=== PATIENT | female | born 1945 | race African-American/Black ===

== ENCOUNTER 2016-11-09 15:36 | Inpatient (IN) | payer OTHER ==
[~2016-11-09] VITALS: Ht 160 cm; Wt 87.7 kg
[2016-11-09] MEDS ORDERED: OMEGA-3 FISH O1 EAC3 PO (18:20)
[2016-11-09] MEDS ORDERED: ASCORBIC ACID500 M3 PO (18:20)
[2016-11-09] MEDS ORDERED: ONE-A-DAY ESSE1 EAC1 PO (18:20)
[2016-11-09] MEDS ORDERED: VITAMIN D31000 UNIT PO (18:20)
[2016-11-09 18:48] LABS: HEMATOCRIT 40.8 % (36.0-46.0); MCH 30.3 PG (29.0-34.0); MCHC 31.9 G/DL (30.0-36.0); MCV 95.1 FL (83-99); PLATELET COUNT 242 K/uL (156-360); RBC DIS.WIDTH-CV 12.9 % (11.8-14.6); RBC DIS.WIDTH-SD 44.9 % (39-53); RED BLOOD COUNT 4.29 M/uL (3.80-5.20); WHITE BLOOD COUNT 9.3 K/uL (4.1-10.2)
[2016-11-09 18:59] LABS: CHLORIDE 103 mEq/L (99-109); POTASSIUM 3.7 mEq/L (3.7-5.4); SODIUM 141 mEq/L (136-147)
[2016-11-09 19:01] LABS: GLUCOSE 118 mg/dL (70-99)
[2016-11-09 19:02] LABS: PTT 26.4 (25-32)
[2016-11-09 19:03] LABS: ANION GAP 11 MEQ/L (2-14)
[2016-11-09 19:05] LABS: GFR ESTIMATE (CALCULATED) > 59 mL/min/
[2016-11-09 19:06] LABS: UREA NITROGEN (BUN) 11 mg/dL (9-23)
[2016-11-09 21:49] VITALS: BP 140/88
[2016-11-09 23:22] VITALS: BP 150/71
[2016-11-10 04:14] VITALS: BP 157/74
[2016-11-10 07:42] VITALS: BP 139/88
[2016-11-10 11:30] VITALS: BP 148/83
[2016-11-10 15:37] VITALS: BP 142/80
[2016-11-10 20:00] VITALS: BP 170/76
[2016-11-10 23:46] VITALS: BP 128/60
[2016-11-11 03:46] VITALS: BP 157/68
[2016-11-11 07:35] VITALS: BP 142/83
[2016-11-11 08:34] LABS: EOSINOPHIL (%) 0.1 % (0-5); HEMATOCRIT 36.1 % (36.0-46.0); IMMATURE GRANULOCYTE (%) 0.6 % (0.0-0.7); IMMATURE GRANULOCYTE COUNT 0.1 K/uL; INSTRUMENT ABS NEUTROPHIL CT 8.6 K/uL; LYMPHOCYTE COUNT 0.9 K/uL (1.0-2.8); MCH 30.3 PG (29.0-34.0); MCHC 31.9 G/DL (30.0-36.0); MCV 95.3 FL (83-99); MEAN PLAT.VOLUME 10.3 uM^3 (9.5-12.4); MONOCYTE (%) 6.5 % (3-12); MONOCYTE COUNT 0.7 K/uL (0-0.8); NEUTROPHIL COUNT 8.6 K/uL (1.8-6.4); PLATELET COUNT 206 K/uL (156-360); RBC DIS.WIDTH-CV 12.6 % (11.8-14.6); RBC DIS.WIDTH-SD 44.3 % (39-53); RED BLOOD COUNT 3.79 M/uL (3.80-5.20); WHITE BLOOD COUNT 10.3 K/uL (4.1-10.2)
[2016-11-11 09:00] LABS: ANION GAP 9 MEQ/L (2-14); CHLORIDE 104 MEQ/L (99-109); GFR ESTIMATE (CALCULATED) > 59 mL/min/; GLUCOSE 114 mg/dL (70-99); POTASSIUM 3.8 MEQ/L (3.7-5.4); SAMPLE HEMOLYSIS CHECK 0; SAMPLE ICTERIC CHECK 0; SAMPLE LIPEMIA CHECK 0; SODIUM 141 MEQ/L (136-147); UREA NITROGEN (BUN) 6 mg/dL (9-23)
[2016-11-11 11:46] VITALS: BP 149/79
[2016-11-11 16:45] VITALS: BP 190/98
[2016-11-11 23:27] VITALS: BP 141/85
[2016-11-12 03:37] VITALS: BP 164/71
[2016-11-12 07:26] VITALS: BP 152/88
[2016-11-12] MEDS ORDERED: HYDROCODON-ACE1 EAC7 PO (12:30)
[2016-11-12] MEDS ORDERED: SENNA LAX8.6 MG PO (12:30)
[2016-11-12] MEDS ORDERED: LOVENOX40 MG/0.4 SC (12:30)
[2016-11-12] MEDS ORDERED: ALUM-MAG HYDRO360 ML PO (14:47)
[2016-11-12] MEDS ORDERED: ZOFRAN4 MG PO (14:48)
[2016-11-12] MEDS ORDERED: TYLENOL REGULA325 MG PO (14:49)
== END 2016-11-12 14:25 | DRG 494 ==
LOC: EME 15:36 → EDOF 18:24 → 3EAST 18:24
PROVIDERS: Emergency Medicine; Orthopaedic Surgery
PROC: 0QSG06Z Reposition Right Tibia with Intramedullary Internal Fixation Device, Open Approach (ICD-10-PCS; principal; 2016-11-10)
DX: S82.241A Displaced spiral fracture of shaft of right tibia, initial encounter for closed fracture (principal); S82.431A Displaced oblique fracture of shaft of right fibula, initial encounter for closed fracture; W01.0XXA Fall on same level from slipping, tripping and stumbling without subsequent striking against object, initial encounter; Z87.891 Personal history of nicotine dependence
CPT/HCPCS: 71010; 73552; 73560; 73590; 73600; 73700; 76000; 80048; 85025; 85027; 85610; 85730; 86900; 86901; 99281; 99285; C1713; J0690; J1170; J1650; J2175; J2250; J2270; J2405; J3010; J7050

== ENCOUNTER 2016-11-12 14:33 | Inpatient (IN) | payer OTHER ==
[~2016-11-12] VITALS: Ht 160 cm; Wt 91.6 kg
[~2016-11-12 14:33] MED LIST: ASCORBIC ACID500 M3 PO; HYDROCODON-ACE1 EAC7 PO; LOVENOX40 MG/0.4 SC; OMEGA-3 FISH O1 EAC3 PO; ONE-A-DAY ESSE1 EAC1 PO; SENNA LAX8.6 MG PO; VITAMIN D31000 UNIT PO
[2016-11-12] MEDS ORDERED: ALUM-MAG HYDRO360 ML PO (14:47)
[2016-11-12] MEDS ORDERED: ZOFRAN4 MG PO (14:48)
[2016-11-12] MEDS ORDERED: TYLENOL REGULA325 MG PO (14:49)
[2016-11-12 15:13] VITALS: BP 164/84
[2016-11-13 00:16] VITALS: BP 140/76
[2016-11-13 05:05] VITALS: BP 145/77
[2016-11-13 06:51] LABS: HEMATOCRIT 29.7 % (36.0-46.0); MCH 31.1 PG (29.0-34.0); MCHC 33.3 G/DL (30.0-36.0); MCV 93.4 FL (83-99); MEAN PLAT.VOLUME 10.6 uM^3 (9.5-12.4); PLATELET COUNT 195 K/uL (156-360); RBC DIS.WIDTH-CV 12.7 % (11.8-14.6); RBC DIS.WIDTH-SD 43.3 % (39-53); RED BLOOD COUNT 3.18 M/uL (3.80-5.20); WHITE BLOOD COUNT 7.4 K/uL (4.1-10.2)
[2016-11-13 07:22] LABS: ALKALINE PHOSPHATASE 58 IU/L (3-129); ANION GAP 7 MEQ/L (2-14); CHLORIDE 106 MEQ/L (99-109); GFR ESTIMATE (CALCULATED) > 59 mL/min/; GLUCOSE 98 mg/dL (70-99); POTASSIUM 3.4 MEQ/L (3.7-5.4); SAMPLE HEMOLYSIS CHECK 0; SAMPLE ICTERIC CHECK 0; SAMPLE LIPEMIA CHECK 0; SODIUM 142 MEQ/L (136-147); TOTAL BILIRUBIN 0.7 MG/DL (0.0-1.0); UREA NITROGEN (BUN) 7 mg/dL (9-23)
[2016-11-13 16:16] VITALS: BP 158/80
[2016-11-14 04:08] VITALS: BP 141/74
[2016-11-14 15:00] VITALS: BP 165/84
[2016-11-15 04:27] VITALS: BP 165/77
[2016-11-15 15:10] VITALS: BP 150/82
[2016-11-16 05:45] VITALS: BP 153/83
[2016-11-16 07:19] LABS: HEMATOCRIT 34.1 % (36.0-46.0); MCH 30.2 PG (29.0-34.0); MCHC 32.3 G/DL (30.0-36.0); MCV 93.7 FL (83-99); MEAN PLAT.VOLUME 9.7 uM^3 (9.5-12.4); RBC DIS.WIDTH-CV 12.3 % (11.8-14.6); RBC DIS.WIDTH-SD 42.5 % (39-53); RED BLOOD COUNT 3.64 M/uL (3.80-5.20); WHITE BLOOD COUNT 6.3 K/uL (4.1-10.2)
[2016-11-16 07:23] LABS: PLATELET COUNT 312 K/uL (156-360)
[2016-11-16 07:40] LABS: ANION GAP 9 MEQ/L (2-14); CHLORIDE 103 MEQ/L (99-109); GFR ESTIMATE (CALCULATED) > 59 mL/min/; GLUCOSE 101 mg/dL (70-99); POTASSIUM 3.7 MEQ/L (3.7-5.4); SAMPLE HEMOLYSIS CHECK 0; SAMPLE ICTERIC CHECK 0; SAMPLE LIPEMIA CHECK 0; SODIUM 140 MEQ/L (136-147); UREA NITROGEN (BUN) 8 mg/dL (9-23)
[2016-11-16 14:54] VITALS: BP 171/99
[2016-11-16] MEDS ORDERED: LOVENOX40 MG/0.4 SC (14:55)
[2016-11-16 20:00] VITALS: BP 170/87
[2016-11-17 04:36] VITALS: BP 143/82
[2016-11-17] MEDS ORDERED: HYDROCODON-ACE1 EAC7 PO (09:43)
== END 2016-11-17 10:51 | disposition home health service (06) | DRG 560 ==
LOC: 3WEST 14:33
PROVIDERS: Physical Medicine & Rehabilitation Pain Medicine
PROC: F07M0ZZ Range of Motion and Joint Mobility Treatment of Musculoskeletal System - Whole Body (ICD-10-PCS; principal; 2016-11-12)
DX: S82.241D Displaced spiral fracture of shaft of right tibia, subsequent encounter for closed fracture with routine healing (principal); S82.831D Other fracture of upper and lower end of right fibula, subsequent encounter for closed fracture with routine healing; R26.2 Difficulty in walking, not elsewhere classified; D62 Acute posthemorrhagic anemia; R33.9 Retention of urine, unspecified; E87.6 Hypokalemia; R03.0 Elevated blood-pressure reading, without diagnosis of hypertension; M79.662 Pain in left lower leg
CPT/HCPCS: 80048; 80053; 85027; 93971; 97110 GO; 97530 GP; J1650